=== PATIENT | female | born 2000 | race Caucasian/White ===

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

== ENCOUNTER 2019-02-20 19:48 | Emergency (ER) | payer BC ==
[~2019-02-20] VITALS: Ht 170.2 cm; Wt 54.5 kg
[~2019-02-20 19:48] MED LIST changes: +HYDROCODON-ACE1 EA10 PO
[2019-02-20 20:35] VITALS: Ht 170.2 cm; Wt 54.5 kg
[2019-02-20 20:40] LABS: BASOPHILS 0.1 % (0-2); EOSINOPHILS 0.9 % (0-7); HEMATOCRIT 40.8 % (36.0-48.0); HEMOGLOBIN 13.8 g/dL (12-16); IMMATURE GRANULOCYTES 0.1 % (0-5); LYMPHOCYTES 25.9 % (15-50); MCH 30.2 pg (26.0-34.0); MCHC 33.8 g/dL (31.0-37.0); MCV 89.3 fL (80.0-100.0); MEAN PLATELET VOLUME 9.8 fL (7.4-10.4); MONOCYTES 9.7 % (2-11); NEUTROPHILS 63.3 % (40-80); PLATELET COUNT 258 10x3/uL (130-400); RBC 4.57 10x6/uL (4.00-5.40); RDW 13.2 % (11.5-14.5); WBC 7.9 10x3/uL (4.8-10.8)
[2019-02-20 20:52] LABS: CALC OSMOLALITY 276 mosm/kg (275-300); CHLORIDE - SERUM 105 mmol/L (98-107); CREATININE - SERUM 0.6 mg/dL (0.6-1.3); GLUCOSE 95 mg/dL (74-106); POTASSIUM - SERUM 3.8 mmol/L (3.5-5.1); SODIUM 140 mmol/L (136-145); UREA NITROGEN 8 mg/dL (7-18); eGFR NON AFRICAN AMERICAN > 90 mL/min (90-120)
[2019-02-20 20:53] LABS: HCG SERUM POSITIVE (NEGATIVE)
[2019-02-20 20:56] LABS: APPEARANCE CLEAR (CLEAR); BILIRUBIN NEGATIVE (NEGATIVE); COLOR YELLOW (YELLOW); GLUCOSE NEGATIVE (NEGATIVE); KETONE NEGATIVE (NEGATIVE); NITRITE NEGATIVE (NEGATIVE); PROTEIN NEGATIVE (NEGATIVE); SPECIFIC GRAVITY 1.015 (1.005-1.020); UROBILINOGEN NORMAL (NORMAL)
[2019-02-20 20:57] LABS: ALBUMIN 3.6 g/dL (3.4-5.0); ALKALINE PHOSPHATASE 101 U/L (46-116); ALT (SGPT) 74 U/L (10-68); BILIRUBIN - TOTAL 0.23 mg/dL (0.2-1.3); LIPASE 77 U/L (73-393); PROTEIN - SERUM 8.1 g/dL (6.4-8.2)
[2019-02-20] MEDS ORDERED: ZOFRAN ODT4 MG/UDTAB PO (21:03)
[2019-02-20 21:38] VITALS: BP 116/71
== END 2019-02-20 21:39 | disposition home or self-care (01) ==
LOC: D.ER 19:48
PROVIDERS: Family Medicine
DX: Z33.1 Pregnant state, incidental (principal)

== ENCOUNTER 2019-03-26 21:39 | Emergency (ER) | payer BC ==
[~2019-03-26] VITALS: Ht 170.2 cm; Wt 56.8 kg
[~2019-03-26 21:39] MED LIST changes: +ZOFRAN ODT4 MG/UDTAB PO
[2019-03-26 21:49] VITALS: Ht 170.2 cm; Wt 56.8 kg
[2019-03-26 22:13] LABS: BASOPHILS 0.1 % (0-2); EOSINOPHILS 0.9 % (0-7); HEMATOCRIT 36.4 % (36.0-48.0); HEMOGLOBIN 12.5 g/dL (12-16); IMMATURE GRANULOCYTES 0.3 % (0-5); MCH 29.8 pg (26.0-34.0); MCHC 34.3 g/dL (31.0-37.0); MCV 86.9 fL (80.0-100.0); MONOCYTES 7.3 % (2-11); NEUTROPHILS 75.4 % (40-80); PLATELET COUNT 255 10x3/uL (130-400); RBC 4.19 10x6/uL (4.00-5.40); RDW 12.4 % (11.5-14.5); WBC 12.9 10x3/uL (4.8-10.8)
[2019-03-26 22:16] LABS: CALC OSMOLALITY 269 mosm/kg (275-300); CARBON DIOXIDE 22.4 mmol/L (21.0-32.0); CHLORIDE - SERUM 104 mmol/L (98-107); CREATININE - SERUM 0.6 mg/dL (0.6-1.3); GLUCOSE 106 mg/dL (74-106); POTASSIUM - SERUM 3.8 mmol/L (3.5-5.1); SODIUM 136 mmol/L (136-145); UREA NITROGEN 6 mg/dL (7-18); eGFR NON AFRICAN AMERICAN > 90 mL/min (90-120)
[2019-03-26 22:44] LABS: ALBUMIN 3.1 g/dL (3.4-5.0); ALKALINE PHOSPHATASE 73 U/L (46-116); ALT (SGPT) 78 U/L (10-68); BILIRUBIN - TOTAL 0.29 mg/dL (0.2-1.3); HCG - QUANTITATIVE (MATERNAL) 65110 mIU/mL; PROTEIN - SERUM 7.4 g/dL (6.4-8.2)
[2019-03-27 00:21] LABS: APPEARANCE HAZY (CLEAR); BILIRUBIN NEGATIVE (NEGATIVE); COLOR YELLOW (YELLOW); GLUCOSE NEGATIVE (NEGATIVE); KETONE NEGATIVE (NEGATIVE); NITRITE POSITIVE (NEGATIVE); PROTEIN NEGATIVE (NEGATIVE); SPECIFIC GRAVITY 1.015 (1.005-1.020); UROBILINOGEN NORMAL (NORMAL)
[2019-03-27 00:23] LABS: BACTERIA MODERATE /hpf (NEGATIVE); EPITHELIAL CELLS 0-5 /hpf (0-5)
[2019-03-27] MEDS ORDERED: MACROBID100 MG PO (00:38)
[2019-03-27 00:52] VITALS: BP 128/77
== END 2019-03-27 00:53 | disposition home or self-care (01) ==
LOC: D.ER 21:39
PROVIDERS: Family Medicine
DX: O23.41 Unspecified infection of urinary tract in pregnancy, first trimester (principal); Z3A.10 10 weeks gestation of pregnancy; N93.9 Abnormal uterine and vaginal bleeding, unspecified

== ENCOUNTER 2019-06-07 04:00 | Inpatient (IN) | payer BC ==
[~2019-06-07] VITALS: Ht 170.2 cm; Wt 58.1 kg
[2019-06-07] MEDS ORDERED: PRENAVITE1 TAB PO (04:06)
--- NOTE | 2019-06-07 04:19 | NUR ---
UA SENT TO LAB
[2019-06-07 04:31] LABS: BASOPHILS 0.2 % (0-2); EOSINOPHILS 0.6 % (0-7); HEMOGLOBIN 11.3 g/dL (12-16); IMMATURE GRANULOCYTES 0.5 % (0-5); LYMPHOCYTES 19.6 % (15-50); MCH 30.7 pg (26.0-34.0); MCHC 34.2 g/dL (31.0-37.0); MCV 89.7 fL (80.0-100.0); MEAN PLATELET VOLUME 9.5 fL (7.4-10.4); MONOCYTES 8.1 % (2-11); PLATELET COUNT 260 10x3/uL (130-400); RBC 3.68 10x6/uL (4.00-5.40); RDW 13.5 % (11.5-14.5); WBC 10.1 10x3/uL (4.8-10.8)
[2019-06-07 04:34] LABS: APPEARANCE CLOUDY (CLEAR); BACTERIA MODERATE /hpf (NEGATIVE); BILIRUBIN NEGATIVE (NEGATIVE); COLOR YELLOW (YELLOW); EPITHELIAL CELLS 0-5 /hpf (0-5); GLUCOSE NEGATIVE (NEGATIVE); KETONE SMALL mg/dL (NEGATIVE); NITRITE POSITIVE (NEGATIVE); PROTEIN 2+ mg/dL (NEGATIVE); SPECIFIC GRAVITY 1.015 (1.005-1.020); UROBILINOGEN NORMAL (NORMAL); WHITE CELLS - URINE 25-50 /hpf (NEGATIVE)
--- NOTE | 2019-06-07 04:45 | NUR ---
PT HEART TONES 146
[2019-06-07 04:50] LABS: CALC OSMOLALITY 277 mosm/kg (275-300); CALCIUM 8.9 mg/dL (8.5-10.1); CARBON DIOXIDE 24.3 mmol/L (21.0-32.0); CHLORIDE - SERUM 106 mmol/L (98-107); CREATININE - SERUM 0.7 mg/dL (0.6-1.3); GLUCOSE 86 mg/dL (74-106); POTASSIUM - SERUM 3.8 mmol/L (3.5-5.1); SODIUM 141 mmol/L (136-145); UREA NITROGEN 6 mg/dL (7-18); eGFR NON AFRICAN AMERICAN > 90 mL/min (90-120)
[2019-06-07 04:56] LABS: ALBUMIN 2.9 g/dL (3.4-5.0); ALKALINE PHOSPHATASE 64 U/L (30-120); ALT (SGPT) 50 U/L (10-68); BILIRUBIN - TOTAL 0.35 mg/dL (0.2-1.3)
--- NOTE | 2019-06-07 08:00 | NUR ---
MEAL TRAY PROVIDED TO PATIENT.
--- NOTE | 2019-06-07 10:00 | NUR ---
RECEIVED PT BY WHEELCHAIR FROM ER. SHE IS AWAKE AND ALERT, SMILING AND TALKING WITH SIG OTHER AT HER SIDE. IV TO LEFT FOREARM, INFUSING LR PER ORDERS. PT RATES PAIN AT 8/10 AND REQUEST PAIN MED IF POSSIBLE. VSS WITH TEMP OF 98.6. PT STATES SHE IS HERE BECAUSE SHE SEE DR DE DIOS AND HAS A HISTORY OF KIDNEY STONES, HER OB IS LOCATED IN [place] AND SHE WAS TRANSFERRED FROM [facility]. PT DENIES NAUSEA OR VOMITING. THERE IS NO TENDERNESS TO TOUCH OR REBOUND TENDERNESS ON HER RIGHT SIDE. PT STATES SHE WENT TO [facility] WITH RIGHT SIDE PAIN AND DUE TO HER HISTORY OF KIDNEY STONES WAS CONCERNED THAT WAS PROBLEM UNSURE ABOUT PYELO DIAGNOSIS AND WILL NOTIFY DR LEAL.
--- NOTE | 2019-06-07 10:15 | NUR ---
DR LEAL GIVEN REPORT OF PT ARRIVAL TO UNIT, ALSO THAT PT STATES SHE IS HERE TO R/O KIDNEY STONE AND ONLY TRANSFERRED FROM [place] BECAUSE SHE SEE DR DE DIOS. VSS WITH TEMP OF 98.6. PT DENIES NAUSEA AND HAS HAD REGULAR BREAKFAST TRAY. NEW PAIN MANAGEMENT ORDERS RECEIVED AND MD TO ROUND ON PT THIS AM.
--- NOTE | 2019-06-07 10:40 | NUR ---
NORCO 10/325MG GIVEN FOR C/O PAIN THAT SHE RATES AT 8/10. PT STATES UNDERSTANDING TO STRAIN ALL URINE AT THIS TIME. DENIES ANY QUESTIONS OR CONCERNS.
[2019-06-07 10:45] VITALS: BP 122/67
--- NOTE | 2019-06-07 11:30 | NUR ---
DR LEAL ON UNIT WITH ROUNDS COMPLETED. ORDERS RECEIVED THAT IF PT ABLE TO TOLERATE PO FLUIDS AND MEDS MAY SALINE LOCK IV, ALSO GAVE PT OPTION FOR DISCHARGE IF DESIRED, IF REMAINS FEVER FREE AND NO VOMITING, OR SHE CAN STAY WITH PLAN TO HAVE UROLOGY EVALUATE IN THE AM. PT UNSURE AT THIS TIME IF SHE WISHES TO STAY OR DISCHARGE.
--- NOTE | 2019-06-07 12:45 | NUR ---
IV SALINE LOCKED, LARGE ICE WATER REQUESTED. PT IS SITTING UP IN BED EATING REGULAR DIET, NO COMPLAINT OF PAIN AT THIS TIME. CALL LIGHT IN REACH WITH SIG OTHER AT BEDSIDE.
--- NOTE | 2019-06-07 14:16 | NUR ---
PT DENIES PAIN OR DISCOMFORT, NO NEEDS AT THIS TIME. CALL LIGHT IN REACH.
[2019-06-07 14:52] VITALS: BP 122/67; Ht 170.2 cm; Wt 58.1 kg
--- NOTE | 2019-06-07 15:45 | NUR ---
CALLED TO ROOM, PT ASK IF SHE IS STILL ABLE TO DISCHARGE HOME TODAY. DR LEAL NOTIFIED, DISCHARGE ORDER RECEIVED.
[2019-06-07] MEDS ORDERED: NORCO-7.51 TAB PO (15:57)
--- NOTE | 2019-06-07 16:08 | NUR ---
SALINE LOCK REMOVED WITH CATH INTACT. PT UP TO VOID AT THIS TIME. WILL CALL WHEN FINISHED SO THAT D/C INSTRUCTIONS CAN BE GONE OVER.
--- NOTE | 2019-06-07 16:15 | NUR ---
VERBAL AND WRITTEN DISCHARGE INSTRUCTIONS GONE OVER WITH PT. SHE IS ALSO PROVIDED WITH WRITTEN SCRIPT FOR NORCO 7.5/325MG WITH INFO ON MEDICATION. PT STATES HER UNDERSTANDING TO CALL DR DE DIOS OFFICE IN AM AND FOLLOW UP WITH HER OB IN [place] SCHEDULED. DENIES PAIN AT THIS TIME AND HAS NO QUESTIONS OR CONCERNS.
--- NOTE | 2019-06-07 16:22 | NUR ---
PT DENIES WHEELCHAIR, AMB TO FRONT DOORS WITH THIS RN. HOME BY PRIVATE CAR WITH SIG OTHER.
--- NOTE | 2019-06-08 12:55 | MORECARE ---
CASE MANAGEMENT DISCHARGE SUMMARY PATIENT: PASQUALE OCLINDRES UNIT: [id number] ADM DATE: 06/07/19 AGE: 19 : [birth year] SEX: F ROOM/BED: D.1222 AUTHOR: BUBBA SHELTON PHYSICIAN: REFERRING PHYSICIAN: CORINNA LEAL MD DATE OF SERVICE: 06/08/19 Discharge Plan Patient Name: PASQUALE COLINDRES Facility: [facility]:[place] : 2000 Planned Disposition: Home Anticipated Discharge Date: 06/07/19 Discharge Date: 06/07/2019 Expected LOS: 1 Initial Reviewer: [email or web address] Initial Review Date: 06/07/2019 Generated: 06/08/19 1:55 pm Patient Name: PASQUALE COLINDRES Page [phone] at 1255 All edits/amendments must be made on the electronic document DICTATION DATE: 06/08/19 1255 GENERAL MANAGER FARM: RUBINA 06/08/19 1255 RPT#: [id number] DC DATE:06/07/19 STATUS: DIS IN [facility] [address] [place] [address] END OF REPORT
== END 2019-06-07 16:24 | disposition home or self-care (01) | DRG 833 ==
LOC: D.ER 04:00 → D.WS 05:55
PROVIDERS: Family Medicine; ADMIT Obstetrics & Gynecology; ATTEND Obstetrics & Gynecology
DX: O23.02 Infections of kidney in pregnancy, second trimester (principal); Z3A.20 20 weeks gestation of pregnancy

== ENCOUNTER 2019-08-09 17:30 | Emergency (ER) | payer BC ==
[~2019-08-09] VITALS: Ht 170.2 cm; Wt 50.0 kg
[~2019-08-09 17:30] MED LIST changes: +NORCO-7.51 TAB PO; +PRENAVITE1 TAB PO
[2019-08-09 17:52] VITALS: Ht 170.2 cm; Wt 50.0 kg
[2019-08-09] MEDS ORDERED: AUGMENTIN 875-11 TAB PO (19:10)
[2019-08-09 20:00] VITALS: BP 122/77
== END 2019-08-09 20:01 | disposition home or self-care (01) ==
LOC: D.ER 17:30
DX: H66.91 Otitis media, unspecified, right ear (principal)